=== PATIENT | female | born 1975 | race Caucasian/White ===

== ENCOUNTER 2021-06-17 06:20 | Day surgery (SDC) | payer BC ==
[2021-06-14 13:19] LABS: Absolute Lymphocytes (CBC) 2.1 K/uL (0.7-4.9); Hematocrit 41.3 % (36.0-45.0); MPV 6.8 fL (7.6-11.3); RBC Red Blood Cell Count 4.46 M/uL (3.86-4.86)
[2021-06-14 13:30] LABS: Urine Appearance CLEAR (Clear); Urine Bilirubin NEGATIVE (Negative); Urine Blood TRACE (Negative); Urine Color YELLOW (Yellow); Urine Glucose NEGATIVE (Negative); Urine Protein NEGATIVE (Negative); Urine Specific Gravity <=1.005 (1.005-1.030); Urine Urobilinogen 0.2 mg/dL (0.2-1.0)
[2021-06-14 13:40] LABS: Urine Microscopic Reflex ORDER UMIC
--- NOTE | 2021-06-14 13:48 | RAD REPORT ---
EXAM DESCRIPTION: Emily Quintero And Elliott (2 Views)06/14/2021 1:40 pm CLINICAL HISTORY: Preop COMPARISON: None FINDINGS: The lungs appear clear of acute infiltrate. The heart is normal size IMPRESSION: No acute abnormalities displayed
[2021-06-14 14:10] LABS: Urine Bacteria <20 /HPF (<20); Urine RBC <5 /HPF (NONE SEEN)
[2021-06-17] MEDS ORDERED: Ringers Lactate 1,000 ML IV ONE ×3 (06:53→10:47)
[2021-06-17] MEDS ORDERED: SCOPOLAMINE HYDROBROMIDE PATCH TD ONE (06:53)
[2021-06-17] MEDS ORDERED: propofoL 200 MG/20 ML VIAL IV ONE (07:03)
[2021-06-17] MEDS ORDERED: LIDOCAINE 2% MPF 5 ML VIAL ONE (07:06)
[2021-06-17] MEDS ORDERED: dexAMETHasone 10 MG/ML VIAL ONE (07:06)
[2021-06-17] MEDS ORDERED: MIDAZOLAM HCL 2 MG/2 ML INJ ONE (07:06)
[2021-06-17] MEDS ORDERED: FENTANYL CITR 250 MCG/5 ML ONE (07:06)
[2021-06-17] MEDS ORDERED: ROCURONIUM 50 MG/5 ML VIAL IV ONE (07:06)
[2021-06-17] MEDS ORDERED: KETAMINE HCL 500 MG/5 ML VIAL ONE (07:06)
[2021-06-17] MEDS ORDERED: ONDANSETRON 4 MG/2 ML VIAL ONE (07:07)
[2021-06-17] MEDS ORDERED: CELECOXIB 100 MG CAPSULE ONE (07:11)
[2021-06-17] MEDS ORDERED: ACETAMINOPHEN 500 MG TAB ONE (07:11)
[2021-06-17] MEDS: CEFAZOLIN 3 GM in NA CHLORIDE 0.9% 100 ML IVPB ONE ×2 (07:56→08:00)
[2021-06-17] MEDS: BUPIVACAINE 0.25% PF 10 ML VIAL ONE ×2 (08:19→08:22)
[2021-06-17] MEDS ORDERED: Phenylephrine HCl 10 MG/ML 1 ML VIAL ONE (09:05)
[2021-06-17] MEDS ORDERED: VECURONIUM 10 MG/VIAL IV ONE (09:18)
[2021-06-17] MEDS ORDERED: FENTANYL CITR 100 MCG/2 ML ONE (10:40)
[2021-06-17] MEDS ORDERED: HYDROMORPHONE HCL 1 MG/ML INJ ONE ×2 (11:35→11:44)
[2021-06-17] MEDS ORDERED: [UNRECOGNIZED DRUG - OTHER] PO PRN (12:15)
[2021-06-17] MEDS ORDERED: HOME MED 1 EA UNK (Benzonatate [Benzonatate] 200 MG Capsule) PO PRN (12:15)
[2021-06-17] MEDS ORDERED: DIPHENHYDRAMINE 25 MG TAB/CAP PO PRN (12:15)
[2021-06-17] MEDS ORDERED: PROMETHAZINE INJ 25 MG/ML AMP IV PRN (12:16)
[2021-06-17] MEDS ORDERED: HYDROCODONE/APAP 5/325 MG TAB PO PRN (12:16)
[2021-06-17] MEDS ORDERED: MEPERIDINE HCL 25 MG/ML SYR IM PRN (12:16)
[2021-06-17 12:22] VITALS: TEMP 97.4
[2021-06-17] MEDS ORDERED: HYDROCODONE/APAP 5/325 MG TAB ONE (13:33)
[2021-06-17 13:52] VITALS: BP 116/73; O2SAT 96
--- NOTE | 2021-06-17 14:10 | P.BOP ---
Preoperative diagnosis: AUB-O/A/pelvic pain, intrabdominal mass Postoperative diagnosis: AUB-O/A/ pelvic pain, endometriosis,left ovarian solid mass Primary procedure: TLH BS, L-O, pelvic washings, Endometriosis ablation, rt ovariopexy Secondary procedure: cystoscopy Hvac Installer: Katty Bautista Estimated blood loss: 50 Specimen: uterus tubes left ovary with mass, pelvic washings Findings: left ovarian mass, endometriosis Anesthesia: General Complications: None Transferred to: Recovery Room Condition: Good
--- NOTE | 2021-06-17 15:31 | OP ---
Date of Procedure: 06/17/2021 Surgeon: Louann Hubbard MD Nickel Plant Operator: Katty Cerna. Preoperative Diagnoses: Menorrhagia, pelvic pain, intraabdominal mass. Postoperative Diagnoses: Menorrhagia (AUB-O/A), pelvic pain, endometriosis, left ovarian solid mass. Procedures Performed: 1.Total laparoscopic hysterectomy, bilateral salpingectomy. 2.Left oophorectomy, pelvic washings. 3.Endometriosis treatment with cauterization using bipolar. 4.Right ovariopexy and cystoscopy. Anesthesia: General endotracheal. Estimated Blood Loss: 50. Specimens: Uterus, tubes, left ovary with mass, pelvic washings. Complications: No complications. Drains: No drains. Condition: Stable. Findings: Left ovarian mass that was solid, appears to have had torsion on that side. Then, the mas s was removed and placed in a bag and removed through the vagina without any spillage. Uterus appear ed to be unremarkable. Slightly dilated tubes. Endometriosis in the posterior cul-de-sac and on the left lateral wall. Cystoscopy, both the ureters were patent. After performing the colpotomy closure, the uterosacrals w ere included in the second layer of the vaginal apex closure. There was excellent support at the end of the procedure. Indication: The patient is a 45-year-old female with all the problems as mentioned above. After doi ng endometrial sampling, there was no atypia or malignancy. Given her left adnexal mass, there could be a fibroid or an ovarian tumor. All these were discussed with the patient and she was consented. She wanted to proceed with a hysterectomy with removal of the mass. CA-125 baseline was normal. She was consented and brought into the OR. Procedure In Detail: 3 g of Ancef were given. SCDs were placed. The patient was taken back to the OR, placed in supine fashion on the operating table. General anesthesia was given. Then, she was pl aced in a dorsal lithotomy position using Hugh stirrups. Vulva, vagina, perineum, and abdomen were all prepped and draped in a sterile fashion. A large VCare introduced into the uterus and fixed in p lace. Brand placed to drain the bladder and attached for retrograde filling. This area was draped. A 1 cm infraumbilical incision made with a scalpel using the open laparoscopy technique. Fascia was incised, tagged with sutures and peritoneum entered bluntly. S-retractors were placed. Aydin intro duced. Site of entry was checked and was unremarkable. A 5 left lower quadrant and 10 suprapubic po rts were placed under direct vision. Bowel was tacked with the help of a 3-0 Monocryl suture on the epiploicae and brought out with Rod-Sherif needle through the left upper quadrant. Then, after visualizing the ureters from the pelvic brim to the ureteric tunnels, there was no evidence of any di stortion. The left ovarian mass was seen and there torsion was seen. After doing the torsion, the t ube was removed. Then, the ovarian pedicle was taken down. Mesosalpinx was taken down to the round ligament. The round ligament was taken down and the posterior broad ligament was opened up. At the level of the ureter, this was dissected and laterally preserving it and then medially, and the peritoneum was opened up to continue the incision to the posterior part of the vaginal wall. Anteriorly, the broad ligament was skeletonized to expose the vessels and peritoneum opened anteriorl y to create a bladder flap all the way to the dissection all the way to the right round ligament. On ce the bladder was dissected inferiorly, an adequate exposure was obtained. Then, I went onto the op posite side. Tube was removed the distal half. Then, the utero-ovarian ligament, the mesosalpinx an d round ligament were all taken down, anteriorly connected the bladder flap and posteriorly taken geraldo n to the uterosacral on the right side. Then, vessels were skeletonized and bladder was dissected do wn. Monopolar used to enter the vesicovaginal space on the anterior wall and then vessels taken down on the right side first, then the cardinal ligaments with LigaSure and the bipolar midline. Similar dissection done on the opposite side as well, then colpotomy with a monopolar hook blade arsen machuca. There was a small lip of the vagina that was dissected most likely due to the position of th e vaginal cuff, manipulator cup. Once the specimen was pulled out and retrieved, then this area of t he vaginal epithelium was devascularized from the colpotomy. It was excised with the help of monopol ar scissors to make it even so that the cuff was not too thick or devascularized piece of tissue left , which would prevent the wound from healing well. Once this was all trimmed up, then 2 simple 0 Vicryl sutures at both angles were placed. Then, 2-lay er closure with 2-0 V-Loc was done on the cuff including the uterosacrals back to the vaginal apex. Thorough irrigation and suction were performed. The right ovary appeared to be very lax and so plan was to perform an ovariopexy to prevent torsion on this side as there was an ovarian cyst or tumor. A 3-0 Monocryl was taken and sutured the pole of the ovary that was attached to the uterus with this suture and then tacked to the base of the round ligament. Sutures were tied down. There was excelle nt vascular supply and no evidence of any windows that could herniate. Before the cuff was closed, the mass was placed in the vaginal 10 mm specimen retrieval bag and pulle d out through the vagina and then the cuff closure was done as dictated. After de-sufflating the abdomen and removing the trocars under direct vision, lidocaine was injected at all the sites. The bowel was freed up as well and the suture was removed. Then, ureters were vis ualized from the pelvic brim to the ureteric tunnels without any evidence of any injury. The fascia at the umbilicus closed with the help of 0 Vicryl and tack sutures tied to each other and simple 0 Vicryl stitch at the suprapubic fascial incision. All skin incisions closed with interrupte d 3-0 chromic. Barnd was removed. Vaginal occluder was removed. Then, cystoscopy was performed with a 17-Portuguese sh eath, 30-degree lens and normal saline. Both ureteric orifices were well visualized with good jets o f urine from both. No evidence of any trauma to the bladder. Bladder was drained. The patient was recovered from anesthesia. Instrument, needle, and sponge counts were correct at the end of the case . 50 mL EBL. She will follow up with us in 1 week. Discussion of results and the was notif ied of the findings. RICHARD/JAMILA Voice ID: [id number] Report ID: [id number]
[2021-06-17] MEDS ORDERED: HOME MED 1 EA UNK (Cetirizine Hcl [Zyrtec] 10 MG Tablet) PO SCH (21:00)
[2021-06-18] MEDS ORDERED: lisinopriL 10 MG TAB PO SCH (09:00)
[2021-06-18] MEDS ORDERED: MONTELUKAST 10 MG TAB PO SCH (09:00)
== END 2021-06-17 13:45 | disposition home or self-care (01) ==
LOC: OR 06:20
PROVIDERS: ATTEND Obstetrics & Gynecology
PROC: 0UT74ZZ Resection of Bilateral Fallopian Tubes, Percutaneous Endoscopic Approach (ICD-10-PCS; 2021-06-17)
PROC: 0UT14ZZ Resection of Left Ovary, Percutaneous Endoscopic Approach (ICD-10-PCS; 2021-06-17)
PROC: 0UBF4ZZ Excision of Cul-de-sac, Percutaneous Endoscopic Approach (ICD-10-PCS; 2021-06-17)
PROC: 0UQ04ZZ Repair Right Ovary, Percutaneous Endoscopic Approach (ICD-10-PCS; 2021-06-17)
PROC: 0UT94ZZ Resection of Uterus, Percutaneous Endoscopic Approach (ICD-10-PCS; principal; 2021-06-17 07:30)
DX: N92.0 Excessive and frequent menstruation with regular cycle (principal); R10.2 Pelvic and perineal pain; N83.9 Noninflammatory disorder of ovary, fallopian tube and broad ligament, unspecified; N80.3 Endometriosis of pelvic peritoneum
CPT/HCPCS: 85025; 36415; 86900; 88108; 86850; 81025; 86901; 88305; 88307; 71046; 58571; 58661; 58662; 58679; J2704; J2370; J2250; J3010 ×2; J1100; J1170 ×2; J7120 ×3; J2405; J0690; 81003; 81015